=== PATIENT | female | born 1995 | race Caucasian/White ===

== ENCOUNTER 2018-03-01 02:21 | Emergency (ER) | payer MEDICAID, OTHER ==
[~2018-03-01] VITALS: Ht 154.9 cm; Wt 91.0 kg
[~2018-03-01 02:21] MED LIST: albuterol
[2018-03-01] MEDS ORDERED: PREDNISONE 20MG TABLET PO STA (03:49)
[2018-03-01] MEDS ORDERED: IPRATROPIUM BROMIDE (0.02%) 0.5MG/2.5ML NEB HHN STA (03:49)
[2018-03-01] MEDS ORDERED: ALBUTEROL (0.083%) 2.5MG/3ML NEB HHN STA (03:49)
[2018-03-01 05:35] VITALS: BP 127/73
== END 2018-03-01 05:35 | disposition home or self-care (01) ==
LOC: ER 02:21
DX: J45.901 Unspecified asthma with (acute) exacerbation (principal)
CPT/HCPCS: 94640; 99283; J7512; J7611; Z7610